=== PATIENT | male | born 1975 | race Two or more races ===

== ENCOUNTER 2019-08-30 18:45 | Emergency (ER) | payer SELFPAY ==
[~2019-08-30] VITALS: Ht 165.1 cm; Wt 63.5 kg
[2019-08-30] MEDS ORDERED: HALOPERIDOL LACTATE INJ 5 MG/ML VIAL ONE (19:35)
[2019-08-30] MEDS ORDERED: LORAZEPAM INJ 2 MG/ML VIAL ONE (19:36)
[2019-08-30] MEDS: LORAZEPAM INJ 2 MG/ML VIAL IM ONE (19:41)
[2019-08-30] MEDS: HALOPERIDOL LACTATE INJ 5 MG/ML VIAL IM ONE (19:41)
--- NOTE | 2019-08-30 19:43 | NUR ---
ASSUMED CARE AT 1915. PT RECIEVED IN BED AWAKE. HE WAS TALKING IN TANZANIAN PER ONE OF THE NURSES. PT DOES NOT ANSWER WHEN ASKED. PT OCCASIONALLY SCREAMS AND YELLS. PER REPORT, PT WAS BROUGHT BECAUSE THE FAMILY CALLED THE MACHINE SKIVER FOR AGGRESSIVE BEHAVIOR. PT WAS REPORTED TO BE DRINKING EARLIER. UNABLE TO GET ANY FURTHER INFORMATION FROM THE PT. MD WAS AT BEDSIDE FOR EVAL. ORDERS RECEIVED, NOTED AND CARRIED OUT.
[2019-08-30 20:41] LABS: BASOPHILS % (AUTO) 0.6 % (0.0-2.0); EOSINOPHILS % (AUTO) 0.6 % (0.0-6.0); HEMATOCRIT 41 % (39-51); LYMPHOCYTES # (AUTO) 0.7 /CMM (0.8-4.8); LYMPHOCYTES % (AUTO) 9.4 % (20.0-44.0); MEAN CORPUSCULAR HGB CONC 34 g/dl (31.0-36.0); MEAN CORPUSCULAR VOLUME 98 fL (80-96); MONOCYTES # (AUTO) 0.4 /CMM (0.1-1.30); MONOCYTES % (AUTO) 6.1 % (2.0-12.0); NEUTROPHILS # (AUTO) 5.8 /CMM (1.8-8.9); NEUTROPHILS % (AUTO) 83.3 % (43.0-81.0); PLATELET COUNT (AUTO) 212 /CMM (150-450); RED BLOOD CELL COUNT(AUTO) 4.22 MIL/uL (4.5-6.0)
[2019-08-30 20:50] LABS: CALCIUM, SERUM 8.8 mg/dL (8.5-10.1); CARBON DIOXIDE 25 mmol/L (21-32); CHLORIDE 106 mmol/L (98-107); CREATININE 0.9 mg/dL (0.6-1.3); GLUCOSE 93 mg/dL (74-106); POTASSIUM 3.9 mmol/L (3.5-5.1); SODIUM SERUM 144 mmol/L (136-145); UREA NITROGEN, BLOOD 17 mg/dL (7-18)
[2019-08-30 20:55] LABS: ALANINE AMINOTRANSFERASE 79 U/L (12-78); ALCOHOL, BLOOD 247 mg/dL (0-0); ALKALINE PHOSPHATASE 56 U/L (46-116); ASPARTATE AMINOTRANSFERASE 92 U/L (15-37); BILIRUBIN,DIRECT 0.1 mg/dL (0.0-0.2); BILIRUBIN,TOTAL 0.2 mg/dL (0.2-1.0); TOTAL PROTEIN, SERUM 7.3 g/dL (6.4-8.2)
[2019-08-30 20:56] LABS: ACETAMINOPHEN < 2 ug/ml (10-30); SALICYLATE < 2.8 mg/dL (2.8-20.0)
[2019-08-30] MEDS: MIDAZOLAM HCL 2 MG/2ML VIAL IM ONE (21:00)
[2019-08-31] MEDS ORDERED: OLANZAPINE 10 MG VIAL IM ONE (00:52)
[2019-08-31] MEDS: OLANZAPINE 10 MG VIAL IM ONE (00:57)
--- NOTE | 2019-08-31 00:59 | NUR ---
PT IS WOKE UP FROM SLEEP. PT IS AGITATED TRYING TO GET OUT OF BED AND STILL TALKING IN FOREIGN LANGUAGE, YELLING AND SCREAMING. MADE AWARE AND RECEIVED ORDER TO GIVEN XYPREZA 10MG IM X 1. NOTED AND CARRIED OUT
[2019-08-31] MEDS ORDERED: LORAZEPAM INJ 2 MG/ML VIAL ONE (02:47)
[2019-08-31] MEDS: LORAZEPAM INJ 2 MG/ML VIAL IM ONE (03:10)
--- NOTE | 2019-08-31 03:10 | NUR ---
ATIVEN IM GIVEN IN R DELTOID
--- NOTE | 2019-08-31 03:20 | NUR ---
URINE COLLECTED AND SENT TO LAB
[2019-08-31 03:25] LABS: APPEARANCE,URINE CLEAR (CLEAR); BILIRUBIN,URINE NEGATIVE (NEGATIVE); BLOOD, URINE NEGATIVE Ery/uL (NEGATIVE); COLOR,URINE YELLOW (YELLOW); KETONES,URINE TRACE (NEGATIVE); LEUKOCYTE ESTERASE ,URINE NEGATIVE (NEGATIVE); NITRITE, URINE NEGATIVE (NEGATIVE); PROTEIN,URINE NEGATIVE (NEGATIVE); UGLUCOSE NEGATIVE (NEGATIVE); UROBILINOGEN,URINE 0.2 EU/dL (0.2)
--- NOTE | 2019-08-31 05:08 | NUR ---
PT REFUSED VITAL SIGN CHECK. RISK VS. BENEFITS EXPLAINED TO THE PT.
--- NOTE | 2019-08-31 05:34 | NUR ---
PT IS AMBULATORY WITH STEADY GAITS. REPORTED WILLING TO LEAVE. CALM WITH STABLE VS. PER MD CLEAR FOR DISCHARGE. Patient discharged to home in stable condition. Written and verbal after care instructions given. Patient verbalizes understanding of instruction.
[2019-08-31 05:36] VITALS: BP 129/68
== END 2019-08-31 05:38 | disposition home or self-care (01) ==
LOC: ER 18:49
DX: F19.10 Other psychoactive substance abuse, uncomplicated (principal); R45.1 Restlessness and agitation; F10.129 Alcohol abuse with intoxication, unspecified; R00.0 Tachycardia, unspecified; Y90.8 Blood alcohol level of 240 mg/100 ml or more
CPT/HCPCS: 36415; 80048; 80076; 80305; 80307; 80329; 81001; 85025; 96372 ×4; 99283; G0480; J1630; J2060 ×2; J3490; 81000-TC